=== PATIENT | male | born 1970 | race Caucasian/White ===

== ENCOUNTER → 2019-08-23 09:30 | Outpatient (BNVA) | payer SELFPAY | PROVIDERS: Visit Provider Nurse Practitioner Family | DX: R05 Cough (principal); J10.1 Influenza due to other identified influenza virus with other respiratory manifestations | CPT/HCPCS: 87400 ==

== ENCOUNTER 2020-03-24 14:12 | Emergency (ER) | payer BC, SELFPAY ==
[2020-03-24 14:18] VITALS: BP 155/88; PULSE 79; RESP 18; TEMP 37; O2SAT 99; BMI 39.0
--- NOTE | 2020-03-24 14:31 | ED_ITS ---
HPI - COVID General: Chief Complaint: COVID symptoms Stated Complaint: fever/muscle aches/cough Time Seen by Provider: 03/24/20 14:22 Triage information: No fever, cough or shortness of breath . 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 Patient said the partner he was recently working with for 48 straight hours tested positive for COVID-19. Today he has had a dry cough and body aches. He took his temperature at home and it was 99 degrees. He says his symptoms are mild and denies any shortness of breath, nausea/vomiting, sore throat, nasal drainage or congestion. Patient says that his employer [employer] needs him to get both the Covid rapid test and the Covid Quest diagnostic test before returning to work. COVID 19 common symptoms: positive fever(s), non-productive cough and body aches; negative chills, productive cough, dyspnea, fatigue, headache(s), throat pain, nasal congestion, nausea, vomiting or diarrhea COVID 19 other sytmptoms: negative chest pain COVID Results: SARS-CoV-2 Antigen (Rapid) Positive (Negative) H 03/24/20 14:44 03/24/20 SARS-CoV-2 RNA (RT-PCR) Pending 03/24/20 14:44 03/24/20 Nasal/Oral Coronavirus 2019 PCR Not detected 01/07/20 07:36 01/07/20 Review of Systems Const: Reports: fever(s) and body aches; Denies: chills or fatigue Eyes: Denies: change in vision or eye discomfort ENMT: Denies: throat pain, odynophagia, nasal discharge or nasal congestion Card: Denies: chest pain, palpitations, edema, swelling of feet/ankles, dyspnea on exertion or orthopnea Resp: Reports: non-productive cough; Denies: dyspnea or productive cough GI: Denies: abdominal pain, nausea, vomiting, diarrhea, constipation or hematochezia : Denies: flank pain, difficulty urinating, dysuria or hematuria Musc: Denies: neck pain, back pain or extremity swelling Skin/Breast: Denies: rash or new lesions Neuro: Denies: headache(s), numbness in extremities or weakness in extremities PFSH ED PFSH: Social History Smoking and tobacco status: current every day smoker smokeless tobacco Physical Exam Const: COMMON NORMALS: no acute distress, patient oriented x3, healthy appearing and alert GENERAL APPEARANCE: cooperative and comfortable HENMT: COMMON NORMALS: normocephalic HEAD & SCALP: normocephalic MOUTH: Normal oral and palatal mucosa present THROAT: posterior oropharynx normal and uvula midline Eye: COMMON NORMALS: Equal, round and reactive pupils present PUPIL: Yes Equal, round and reactive pupils present Neck/C-Spine: COMMON NORMALS: supple GENERAL: Yes normal visual inspection Resp: COMMON NORMALS: normal respiratory effort, No retractions, No use of accessory muscles and clear to auscultation bilaterally EFFORT & INSPECTION: Yes able to speak in complete sentences, No tachypneic, No respiratory distress and No labored AUSCULTATION: clear to auscultation bilaterally Cardio: COMMON NORMALS: regular rate, regular rhythm, S1 normal heart sound present, S2 normal heart sound present, No gallops present (Cardio), No clicks present (Cardio), No murmurs present (Cardio) and Peripheral pulses 2+ throughout RATE: regular rate RHYTHM: regular rhythm HEART SOUNDS: S1 normal heart sound present and S2 normal heart sound present PERIPHERAL PULSES: Peripheral pulses 2+ throughout GI: COMMON NORMALS: Normal to inspection, nondistended, normoactive bowel sounds present, Soft to palpation, non-tender and no masses PALPATION: Yes Soft to palpation : COMMON NORMALS: Yes no CVA tenderness BLADDER/KIDNEY EXAM: Yes no CVA tenderness Back/Pelvis: COMMON NORMALS: no CVA tenderness Extremity: COMMON NORMALS: normal to inspection Neuro: COMMON NORMALS: patient oriented x3 and moves all extremities SENSORIUM/ORIENTATION: Yes alert Skin: GENERAL SKIN EXAM: dry skin Course ED course: 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 He is having fever, body aches and dry cough. Lungs were clear to auscultation bilaterally, patient appears in no acute respiratory distress. Patient says that [employer] requires him to perform the rapid antigen Covid testing along with the PCR test. Labs were collected and patient would like to go home and we will call him with results. He was told to self quarantine as discussed until results come in. Patient understood agree with plan. Vital Signs: Vital signs: Vital Signs Temperature 98.6 F 03/24/20 14:18 Pulse Rate 79 03/24/20 14:18 Respiratory Rate 18 03/24/20 14:18 Blood Pressure 155/88 03/24/20 14:18 Pulse Oximetry 99 03/24/20 14:18 MDM - COVID Lab Data Labs: Lab Results 03/24/20 03/24/20 Range/Units 14:44 14:44 Influenza Type A Ag Negative (Negative) Influenza Type B Ag Negative (Negative) SARS-CoV-2 Ag (Rapid) Positive H (Negative) COVID Results: 2 SARS-CoV-2 Antigen (Rapid) Positive (Negative) H 03/24/20 14:44 03/24/20 SARS-CoV-2 RNA (RT-PCR) Pending 03/24/20 14:44 03/24/20 Nasal/Oral Coronavirus 2019 PCR Not detected 01/07/20 07:36 01/07/20 Discharge Plan Discharge Patient Disposition: Home Clinical Impression: Close exposure to severe acute respiratory syndrome coronavirus 2 (SARS-CoV-2) Condition: Stable Prescriptions: No Action levothyroxine 100 mcg capsule 100 mcg PO DAILY RF: 0 Discharge Orders: Discharge Order (Routine); Ordered 03/24/20 Ordered By: Igor Sanchez Referrals: Harry Butts DO [Primary Care Provider] - Discharge Diet: Regular Discharge Activity: Limit activity as instructed Activity Restrictions/Additional Instructions: We will call you with some of the results today. Follow-up with medical provider as directed in 7-10 days. COVID testing was performed and sent to lab and results will be back in 2 to 3 days. Self parker rantine for the next 3 days or up to 12 days pending on COVID testing results. Contact [facility] in 2 to 3 days to get results or [facility] will contact you with results. Take ibuprofen or Tylenol for fevers. Drink plenty of fluids and stay hydrated. Symptom management with [id number] cough and nasal decongestant meds. Return to the ER or your medical provider if condition worsens. Please read and understand discharge instructions. If any questions, please ask. 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
[2020-03-24 16:29] LABS: SARS Covid-2 Antigen Positive (Negative)
--- NOTE | 2020-03-24 16:29 | PC.NURSE ---
Lab called critical COVID results as positive on the rapid. Pt called and notified.
[2020-03-24 16:30] LABS: Influenza A by IFA Negative (Negative); Influenza B by IFA Negative (Negative)
[2020-03-26 18:29] LABS: Quest SARS-CoV-2 RNA DETECTED (NOT DETECTED)
== END 2020-03-24 15:11 | disposition home or self-care (01) ==
PROVIDERS: Emergency Provider Physician Assistant; PCP Family Medicine
DX: U07.1 COVID-19 (principal); F17.220 Nicotine dependence, chewing tobacco, uncomplicated
CPT/HCPCS: 12345; 87426; 87635; 87804; 99281; 99282

== ENCOUNTER → 2020-07-02 08:34 | Outpatient (BNVA) | payer BC, SELFPAY | PROVIDERS: PCP Family Medicine; Visit Provider Nurse Practitioner Family | DX: E07.9 Disorder of thyroid, unspecified (principal) | CPT/HCPCS: 84443 ==

== ENCOUNTER → 2021-01-27 09:24 | Outpatient (BNVA) | payer BC, SELFPAY | PROVIDERS: PCP Family Medicine; Visit Provider Nurse Practitioner Family | DX: E03.9 Hypothyroidism, unspecified (principal) | CPT/HCPCS: 84443 ==